=== PATIENT | female | born 1955 | race Caucasian/White ===

== ENCOUNTER 2017-06-28 05:08 | Inpatient (IN) ==
[2017-06-15 10:39] LABS: URINE MICRO REVIEW NEEDED? NO; URINE SOURCE CLEAN CATCH
[2017-06-15 10:39] LABS: MANUAL DIFF NEEDED? NO
[2017-06-15 10:51] LABS: BASO% 0.6 % (0.0-0.8); EOS# 0.11 X1000 (0.0-0.7); EOS% 2.4 % (0.0-10.0); HEMATOCRIT 38.4 % (37.0-47.0); HEMOGLOBIN 12.3 g/dL (12.0-16.0); LYMPH# 1.41 X1000 (1.2-3.4); LYMPH% 30.4 % (20.5-51.1); MCV 87.3 FL (81-99); MONO% 10.8 % (1.7-9.3); MPV 9.1 FL (7.4-10.4); NEUT% 55.8 % (42.2-75.2); PLT 319 X1000 (130-400)
[2017-06-15 10:54] LABS: BILIRUBIN URINE NEGATIVE (NEGATIVE); BLOOD URINE NEGATIVE (NEGATIVE); COLOR YELLOW; GLUCOSE URINE NEGATIVE (NEGATIVE); LEUKOCYTES URINE LARGE (NEGATIVE); NITRITE URINE NEGATIVE (NEGATIVE); PH URINE 6.5; PROTEIN URINE NEGATIVE (NEGATIVE); SP GRAVITY URINE 1.015; TURBIDITY URINE CLEAR (CLEAR); UR EPITHELIAL CELLS <10 /HPF (<10); URINE BACTERIA NEGATIVE /HPF; URINE RBC <10 /HPF (<10); UROBILINOGEN URINE NORMAL (NORMAL)
[2017-06-15 10:58] LABS: INR 1.03; PROTIME 10.8 Seconds (9.2-11.7)
[2017-06-15 11:16] LABS: AGAP 11; BUN 13 mg/dL (8-22); CALCIUM 9.7 mg/dL (8.8-10.2); CHLORIDE 102 mmol/L (98-107); COSMO 279; SODIUM 140 mmol/L (136-145); TCO2 27 mmol/L (25-35)
--- NOTE | 2017-06-15 12:06 | EKG Report ---
Test Performed on : 06/15/2017 09:50:35 AM Test Reason : PAT Blood Pressure : / mmHG Vent. Rate : 053 BPM Atrial Rate : 053 BPM P-R Int : 144 ms QRS Dur : 082 ms QT Int : 450 ms P-R-T Axes : 053 047 039 degrees QTc Int : 422 ms Sinus bradycardia. Otherwise normal ECG No previous ECGs available Confirmed by Rio Owens MD ([id number]) on 06/18/2017 9:42:59 PM
[2017-06-28] MEDS ORDERED: PEPCID ONE (07:26)
[2017-06-28] MEDS ORDERED: COLACE ONE (07:26)
[2017-06-28] MEDS ORDERED: CELEBREX ONE (07:26)
[2017-06-28] MEDS ORDERED: LYRICA ONE (07:26)
[2017-06-28] MEDS ORDERED: REGLAN ONE (07:26)
[2017-06-28] MEDS ORDERED: KEFZOL 1 GM/D5W 1 GM/50 ML IVPB ONE (07:26)
[2017-06-28] MEDS ORDERED: LR 1,000 ML ONE (07:27)
--- NOTE | 2017-06-28 08:08 | HISTORY AND PHYSICAL ---
CHIEF COMPLAINT: Left knee pain. HISTORY OF PRESENT ILLNESS: This is a 62-year-old female with a history of gradually increasing degeneration of her left knee. She has had medication injections and other conservative measures without relief. She was evaluated in the office found to need a left total knee arthroplasty. The surgical procedure, as well as risks and benefits explained to the patient at this time and elected to proceed. PAST MEDICAL HISTORY: ALLERGIES: Morphine. SERIOUS ILLNESSES: None. PAST SURGERIES: Hysterectomy, jaw surgery, and appendectomy. MEDICATIONS: None. REVIEW OF SYSTEMS: HEENT: No history of migraines, dizziness, loss consciousness, or cerebrovascular accident. Respiratory: She is nonsmoker. No history of asthma, emphysema, or shortness of breath. Heart: She has history of mitral valve prolapse. No history of any chest pain or past myocardial infarction. Abdomen: Has history of reflux. No history of bowel or bladder abnormalities. PHYSICAL EXAMINATION: GENERAL: This is a 62-year-old female, alert and oriented. Her primary care physician Dr. Contreras. HEENT: Pupils equal, round, reactive. NECK: Good range of motion without adenopathy or masses. RESPIRATORY: Respirations equal, unlabored, and clear bilaterally. HEART: Regular rate and rhythm. ABDOMEN: Soft, nontender. Bowel sounds present. EXTREMITIES: She complains of pain about her left knee. She states that some days are worse than others. She has minimal swelling at this time. IMPRESSION: Degenerative disease left knee. PLAN: Admitted at this time for a left total knee arthroplasty. Dictated by Denis Oseguera RN for Walter Rouse MD This chart was documented by the indicated scribe, Denis Oseguera RN and accurately reflects the services I performed and decisions made by me, Walter Rouse MD, as attested by the provider's signature. cc: Walter Rouse MD
[2017-06-28] MEDS ORDERED: DURAMORPH ONE (08:27)
[2017-06-28] MEDS ORDERED: TORADOL ONE ×2 (08:27→09:36)
[2017-06-28] MEDS ORDERED: EXPAREL 1.3% ONE ×2 (08:28→09:36)
[2017-06-28] MEDS ORDERED: NEOSPORIN G.U. IRRIGANT ONE (08:28)
[2017-06-28] MEDS ORDERED: SENSORCAINE 0.5%-EPI 1:200,000 ONE ×2 (08:28→09:36)
[2017-06-28] MEDS ORDERED: SODIUM CHLORIDE 0.9% ONE ×2 (08:28→09:36)
[2017-06-28] MEDS ORDERED: CYKLOKAPRON 1,000 MG/NS 1,000 MG/100 ML IVPB ONE ×2 (08:28→09:38)
[2017-06-28] MEDS ORDERED: VANCOMYCIN ONE (08:54)
[2017-06-28] MEDS ORDERED: VERSED ONE (09:02)
[2017-06-28] MEDS ORDERED: FENTANYL ONE (09:03)
[2017-06-28] MEDS ORDERED: DIPRIVAN 1% ONE (09:03)
[2017-06-28] MEDS ORDERED: OFIRMEV 1000 MG/ISOTONIC SOLN 1,000 MG/100 ML BOTTLE ONE (09:21)
[2017-06-28] MEDS ORDERED: ZOFRAN ONE (09:31)
[2017-06-28] MEDS ORDERED: DECADRON ONE (09:31)
[2017-06-28] MEDS ORDERED: NEO-SYNEPHRINE ONE (09:59)
[2017-06-28 10:04] LABS: URINE MICRO REVIEW NEEDED? NO; URINE SOURCE CATH
[2017-06-28 10:08] LABS: BILIRUBIN URINE NEGATIVE (NEGATIVE); BLOOD URINE NEGATIVE (NEGATIVE); COLOR STRAW; GLUCOSE URINE NEGATIVE (NEGATIVE); LEUKOCYTES URINE NEGATIVE (NEGATIVE); NITRITE URINE NEGATIVE (NEGATIVE); PH URINE 6.5; PROTEIN URINE NEGATIVE (NEGATIVE); SP GRAVITY URINE 1.006; TURBIDITY URINE CLEAR (CLEAR); UROBILINOGEN URINE NORMAL (NORMAL)
[2017-06-28 10:10] LABS: UR EPITHELIAL CELLS <10 /HPF (<10); URINE BACTERIA NEGATIVE /HPF; URINE RBC <10 /HPF (<10); URINE WBC <10 /HPF (<10)
[2017-06-28] MEDS ORDERED: NS 1,000 ML ONE (11:51)
--- NOTE | 2017-06-28 11:54 | Diag Imaging Result Doc PS360 ---
EXAM: KNEE 1-2 VIEWS-LEFT INDICATION: LT TKA TECHNIQUE: 2 views COMPARISON: None. FINDINGS: There has been a recent left knee arthroplasty. The arthroplasty hardware is in the expected position. There is no evidence of periprosthetic fracture. Anterior skin matt and a drainage catheter are in place. IMPRESSION: Satisfactory postoperative left knee. Electronically signed by Omer Landrum 06/28/2017 11:51 AM
[2017-06-28] MEDS: DILAUDID ONE ×2 (12:12→12:17)
[2017-06-28] MEDS ORDERED: ZOFRAN PO PRN (12:30)
[2017-06-28] MEDS ORDERED: ZOFRAN IV PRN (12:30)
[2017-06-28] MEDS ORDERED: MILK OF MAGNESIA PO PRN (12:30)
[2017-06-28] MEDS: NS 1,000 ML IV SCH (12:45)
[2017-06-28] MEDS: TYLENOL PO SCH ×3 (14:26→23:38)
[2017-06-28] MEDS: DILAUDID IV PRN (14:27)
--- NOTE | 2017-06-28 15:26 | OPERATIVE NOTE ---
PROCEDURE DATE: 06/28/2017 PREOPERATIVE DIAGNOSIS: Degenerative osteoarthritis, left knee. POSTOPERATIVE DIAGNOSIS: Degenerative osteoarthritis, left knee. PROCEDURES: Left total knee arthroplasty with DePuy Attune size 6 narrow posterior stabilized femur, size 6 tibial tray, a 6 mm rotating platform tibial insert, and a 35 mm medialized anatomic patella. SURGEON: Nasim BUSINESS PERFORMANCE ADVISOR: Mike Milian SECOND KITCHEN CLEANER: Denis Oseguera ANESTHESIA: Spinal. IV FLUIDS: 2500 mL lactated Ringer's. ESTIMATED BLOOD LOSS: 75 mL. TOURNIQUET TIME: 75 minutes at 350 mmHg. COMPLICATIONS: None. INDICATION: The patient is a pleasant, 62-year-old female with chronic history of worsening pain and discomfort over the left knee. Continued pain and discomfort, despite appropriate nonoperative treatment. Radiographic studies revealed findings consistent with osteoarthritis. Recommendation for left total knee arthroplasty was offered. The risks and benefits of surgery were explained, including the risks of anesthesia, , bleeding, infection, failure to relieve pain, postoperative stiffness, nerve injury, blood clots, and other imponderables. All questions were answered. The patient and family wished to proceed with surgery. DETAILS OF OPERATION: The patient was taken to the operating room and placed supine on operating table. Once adequate anesthesia was obtained, the patient's left lower extremity was subsequently prepped and draped in usual sterile fashion. Esmarch was used to exsanguinate the left lower extremity. Tourniquet was applied to 350 mmHg. A standard anterior incision made skin knife. Medial and lateral skin envelopes developed. Standard medial parapatellar arthrotomy was then performed. Patella fat pad was excised. Retractor was then placed. Approximately 1 cm anterior to the PCL insertion, a starting reamer was passed. Intramedullary guide with a distal femoral cutting block was pinned in position. Distal femoral cut was then performed in standard fashion. A sizing block was placed, measured size 6. Corresponding pins were placed. Anterior, posterior, and chamfer cuts were then made. Attention then turned to the proximal tibia, where further resection of the ACL and PCL was performed. Using the extramedullary guide, the proximal tibia cutting block was pinned in position. Had good alignment confirmed with the alignment giancarlo. The proximal tibia was then resected. The spacer block was placed and had good soft tissue balance in both flexion and extension. Medial and lateral menisci were excised. A curved osteotome was used to remove the posterior osteophytes. A spacer block was then placed and had good soft tissue balance in both flexion and extension. The size 6 tibial tray appeared to be correct size. This was pinned in position. This followed by a central reamer and a fin punch. A box-cutting guide was then pinned on the distal femur. A box cut was performed. The trial femoral component was then placed in position. Two lug holes were drilled. A tibial insert was then placed and had good soft tissue balancing. Patella was everted and resected in standard fashion. A 35 appeared be correct size. Corresponding holes were drilled. A trial patella component then placed and had good patellofemoral tracking. Trial components were then removed. Copious irrigation then performed antibiotic pulsatile lavage, while vancomycin was mixed cement on the back table. Sequential cementing was then performed, first with the tibial tray and excess cement was removed with a Lamont, followed by the femoral component, and excess cement removed with a Lamont. A trial tibial insert was placed in full extension. Axial loading was maintained while cement cured. The patella cemented in standard fashion. Patella clamp was placed. Exparel was placed in the deep soft tissue, as well as subcutaneous tissue, while cement was curing. After cement had cured, peripheral cement was removed with a small osteotome. The 6 mm appeared to correct size on the tibial insert, and the tibial insert was removed. Exparel was placed in the deep posterior capsule. The wound was copiously irrigated with antibiotic pulsatile lavage. A 6 mm rotating platform tibial insert was then placed and had good soft tissue balance. There was good patellofemoral tracking and good range of motion. A 1.8 Hemovac drain was placed and was not sewn in. Copious irrigation then performed once again with antibiotic pulsatile lavage. A #1 Vicryl was used to repair arthrotomy, followed by 2-0 Vicryl repair of subcutaneous tissue and skin matt. Adaptic, sterile 4 x 4's, Webril, cryo unit, and Zacarias wrap to the left lower extremity. The patient tolerated the procedure well, with no complications. Transferred to the recovery room in stable condition. cc: Walter Rouse MD MTDD
[2017-06-28] MEDS: KEFZOL 1 GM/D5W 1 GM/50 ML IVPB IV SCH (16:33)
[2017-06-28] MEDS ORDERED: SODIUM CHLORIDE 0.9% INJ PRN (18:00)
[2017-06-28] MEDS ORDERED: PHENERGAN IV PRN (18:00)
[2017-06-28] MEDS: COLACE PO SCH (21:25)
[2017-06-28] MEDS: PERIDEX MT SCH (21:25)
[2017-06-28] MEDS: OXY IR PO PRN (21:25)
[2017-06-29] MEDS: NS 1,000 ML IV SCH (01:22)
[2017-06-29] MEDS: KEFZOL 1 GM/D5W 1 GM/50 ML IVPB IV SCH (01:23)
[2017-06-29] MEDS: TYLENOL PO SCH (05:46)
[2017-06-29] MEDS: DILAUDID IV PRN (05:47)
[2017-06-29] MEDS ORDERED: XARELTO PO SCH (06:00)
[2017-06-29 06:42] LABS: HEMATOCRIT 30.7 % (37.0-47.0); HEMOGLOBIN 9.6 g/dL (12.0-16.0)
[2017-06-29] MEDS: OXY IR PO PRN ×2 (06:51→09:34)
[2017-06-29 07:21] LABS: AGAP 7; BUN 8 mg/dL (8-22); CALCIUM 8.7 mg/dL (8.8-10.2); CHLORIDE 108 mmol/L (98-107); COSMO 283; POTASSIUM 4.4 mmol/L (3.5-5.1); SODIUM 143 mmol/L (136-145); TCO2 28 mmol/L (25-35)
[2017-06-29 07:38] VITALS: BP 136/80
[2017-06-29] MEDS: PERIDEX MT SCH (08:48)
[2017-06-29] MEDS: COLACE PO SCH (08:48)
[2017-06-29] MEDS ORDERED: PEPCID PO SCH (09:00)
--- NOTE | 2017-06-29 09:08 | PROGRESS NOTE ---
DATE: 06/29/2017 SUBJECTIVE: Patient is a pleasant 62-year-old female who is 1 day status post left total knee arthroplasty. Patient is currently resting comfortably, and has no complaints. OBJECTIVE: The patient's left lower extremity dressing is intact. Calf is soft. He has active dorsiflexion and plantar flexion. She is neurovascularly intact throughout. LABORATORY DATA: Her hemoglobin is 9.6, hematocrit is 30.7. IMPRESSION: Postoperative day 1 status post left total knee arthroplasty. PLAN: At this point, the patient seems to be progressing well. We will mobilize physical therapy. Plan on discharging home later today. She will receive home physical therapy. She will follow up in the office on 07/11/2017. cc: Walter Rouse MD
== END 2017-06-29 11:54 | disposition home health service (06) ==
LOC: SURHOLD 05:08 → 4N 10:02
PROVIDERS: ADMIT Orthopaedic Surgery Adult Reconstructive Orthopaedic Surgery; ATTEND Orthopaedic Surgery Adult Reconstructive Orthopaedic Surgery